=== PATIENT | male | born 1945 | race Caucasian/White ===

== ENCOUNTER 2017-10-19 20:44 | Emergency (ER) | payer MEDICARE, OTHER ==
[~2017-10-19 20:44] MED LIST: Iopamidol 370 76% 100 ML VIAL ONE
[2017-10-19 21:53] LABS: #Basophils 0.1 thou/uL (0.0-0.2); #Eosinphils 0.1 thou/uL (0.0-0.7); #Lymphocytes 1.8 thou/uL (1.20-3.40); #Monocytes 0.6 thou/uL (0.11-0.59); %Basophils 0.9 % (0.0-1.0); %Eosinophils 1.5 % (0.0-10.0); %Lymphocytes 20.3 % (21.0-51.0); %Monocytes 7.1 % (0.0-10.0); Hematocrit 33.4 % (42.0-52.0); Mean Platelet Volume 6.1 fL (7.4-10.4); White Blood Cell (WBC) Count 8.6 thou/uL (4.8-10.8)
[2017-10-19 22:04] LABS: Anion Gap 15 mmol/L (10-20); BUN (Urea Nitrogen) 19 mg/dL (8.4-25.7); Calc. Creatinine Clearance 0 mL/min (70-130); Calcium 8.9 mg/dL (7.8-10.44); Carbon Dioxide 21 mmol/L (23-31); Chloride 112 mmol/L (98-107); Estimated GFR-MDRD 61
[2017-10-19 22:08] LABS: Troponin I Less than 0.010 ng/mL (< 0.028)
--- NOTE | 2017-10-19 22:16 | RAD ---
CHEST ONE VIEW: History: Chest pain. Right shoulder pain. Comparison: 04-16-10 FINDINGS: Atherosclerosis of the aorta. Normal cardiac silhouette. The pulmonary vessels and hilum are normal. Costophrenic angles are clear. Chronic changes are suspected. No consolidation or mass. No pneumothor ax. Bilateral surgical change to the humerus is noted. IMPRESSION: Atherosclerosis. No acute process. POS: [facility]
[2017-10-19] MEDS ORDERED: Methocarbamol 500 MG TAB ONE (22:26)
[2017-10-19 22:35] LABS: PTT 26.8 SEC (22.9-36.1); Prothrombin Time 13.6 SEC (12.0-14.7)
--- NOTE | 2017-10-19 23:21 | CT ---
CT CHEST WITH 3D VOLUMN RENDERING: Indication: Right shoulder pain, chest pain. FINDINGS: No evidence of a significant filling defect of the pulmonary atrial system. There are scattered nonsp ecific ground glass nodular opacities of the lungs bilaterally, most notable within the left upper lo be. There is no effusion or pneumothorax. Small hiatal hernia is present. There is suture material se en at the gastric region and gastroesophageal junction indicating prior bypass. Correlate with surgic al history. There is moderate distention of the partially imaged gallbladder. A few nonspecific borde rline sized thoracic lymph nodes are present. The thoracic aorta is non-aneurysmal with scattered vas cular disease. There is coronary artery calcium. IMPRESSION: 1. No evidence of acute pulmonary embolus. 2. Nonspecific ground glass nodular opacities articularly involving the left upper lobe favoring an a typical infectious versus inflammatory process. Follow up exam upon resolution of acute symptoms and completion of treatment regimen is necessary as the possibility of underlying neoplastic process justus ot be entirely excluded. 3. Moderate distention of the partially imaged gallbladder. Correlate clinically and as necessary, ga llbladder ultrasound may prove useful to further characterize. POS: C
[2017-10-19] MEDS ORDERED: Enoxaparin Sodium 100 MG/ML SYRINGE ONE (23:29)
== END 2017-10-19 23:55 | disposition home or self-care (01) ==
LOC: SCSER 20:44
DX: M25.511 Pain in right shoulder (principal); I48.91 Unspecified atrial fibrillation; E11.9 Type 2 diabetes mellitus without complications; J45.909 Unspecified asthma, uncomplicated
CPT/HCPCS: 71010; 71275; 80048; 82553; 83880; 84484; 85025; 85379; 85610; 85730; 93005; 96372; J1650